=== PATIENT | male | born 1935 | race Caucasian/White ===

== ENCOUNTER 2017-02-09 20:32 | Inpatient (IN) | payer OTHER ==
[~2017-02-09] VITALS: Ht 185.4 cm; Wt 98.6 kg
--- NOTE | ~2017-02-09 | HC ---
[facility] [place] [address] CONSULTATION Name: MAR ORO Room #: 438-[facility] [place] ..#: [id number] Admission: 02/09/17 Attend Phys: Alireza Cruz MD Discharge: Date of : 35 Report #: [id number] THIS REPORT FOR: //name// CC: [facility] physician/PCP Stephanie Cain MD DATE OF SERVICE: 02/09/2017 HISTORY OF PRESENT ILLNESS: The patient is an 81-year-old male, who was eating a piece of chicken earlier today and since that time it has been impacted in his esophagus, most likely he has not been able to swallow liquids or his own saliva. He had a food impaction that was removed 2 weeks ago at his local hospital apparently, which was removed at that time endoscopically and then later had a dilation apparently. He denies any shortness of breath. He does report some mild chest discomfort. He was transferred from [facility] this evening. He denies any fevers or chills. Apparently, he has had some type of gastric surgery in the past. MEDICATIONS ON ADMISSION: Listed; aspirin 81 mg, hydrochlorothiazide, Naprosyn p.r.n., Norvasc, omeprazole 20 mg every day, and potassium chloride. ALLERGIES: LASIX. REVIEW OF SYSTEMS: As per HPI. FAMILY HISTORY: Negative for colon cancer. SOCIAL HISTORY: Denies any tobacco or alcohol use. PHYSICAL EXAMINATION: VITAL SIGNS: Temperature is 36.7, pulse 55, blood pressure 154/79, and respiratory rate is 20. GENERAL: He is alert and oriented x 3, in no acute distress. HEENT: Sclerae nonicteric. Oropharynx clear. NECK: Supple, without lymphadenopathy. HEART: Regular rate and rhythm. LUNGS: Chest is clear to auscultation bilaterally. ABDOMEN: Soft, nontender, nondistended, normoactive bowel sounds. EXTREMITIES: No cyanosis, clubbing or edema. ASSESSMENT AND PLAN: 1. Food impaction. We will proceed with upper endoscopy at this time for further evaluation and removal. The patient understands and agrees with this plan. We will make further recommendations after endoscopy. [facility] [address] [place] [address] CONSULTATION Name: MAR ORO Room #: 438-[facility] [place] .R.#: [id number] Admission: 02/09/17 Attend Phys: Alireza Cruz MD Discharge: Date of : 35 Report #: [id number] Thank you for allowing me to participate in his care. <ELECTRONICALLY SIGNED> By: Lisandro Khanna MD 02/10/17 [id number] Lisandro Khanna MD /nt
[2017-02-09 21:55] VITALS: BP 154/79
[2017-02-10 01:06] LABS: HEMATOCRIT 31.5 % (42.0-52.0); HEMOGLOBIN 10.5 gm/dL (14.0-18.0); MCH 29.6 pg (26.0-34.0); MCHC 33.5 g/dL (28.0-37.0); MCV 88.6 fL (80.0-100.0); RBC 3.55 mil/uL (4.50-6.00); RDW 17.4 % (10.5-14.5); WBC 8.8 thou/uL (4.0-11.0)
[2017-02-10 01:17] LABS: CALCIUM 8.7 mg/dL (8.5-10.1); CREATININE 1.3 mg/dL (0.7-1.3); POTASSIUM 3.8 mmol/L (3.5-5.1)
[2017-02-10 04:12] VITALS: BP 157/68
[2017-02-10 08:39] VITALS: BP 106/54
[2017-02-10] MEDS ORDERED: PANTOPRAZOLE SO40 M1 PO (12:58)
[2017-02-10] MEDS ORDERED: CARAFATE 11 GM/10 M1 PO (12:58)
[2017-02-10 15:08] VITALS: BP 106/54
[2017-02-10 16:13] VITALS: BP 125/61
[2017-02-10 16:41] VITALS: BP 106/54
== END 2017-02-10 16:42 | disposition home or self-care (01) | DRG 392 ==
LOC: 4S 20:32
PROVIDERS: Nurse Practitioner Acute Care
PROC: 0DJ08ZZ Inspection of Upper Intestinal Tract, Via Natural or Artificial Opening Endoscopic (ICD-10-PCS; principal; 2017-02-09)
DX: K22.2 Esophageal obstruction (principal); K20.9 Esophagitis, unspecified; I10 Essential (primary) hypertension; H54.8 Legal blindness, as defined in USA; T18.108A Unspecified foreign body in esophagus causing other injury, initial encounter; X58.XXXA Exposure to other specified factors, initial encounter; Y93.89 Activity, other specified; Y92.89 Other specified places as the place of occurrence of the external cause; Z91.040 Latex allergy status; Z88.8 Allergy status to other drugs, medicaments and biological substances; Z90.49 Acquired absence of other specified parts of digestive tract; Z80.9 Family history of malignant neoplasm, unspecified; Z82.49 Family history of ischemic heart disease and other diseases of the circulatory system; Z87.11 Personal history of peptic ulcer disease; Y99.8 Other external cause status
CPT/HCPCS: 10102